=== PATIENT | female | born 1995 | race Caucasian/White ===

== ENCOUNTER → 2017-03-14 | Outpatient (REF) | payer OTHER ==
[2017-03-18 00:08] LABS: W008-IgE DANDELION <0.10 kU/L (Class 0)
== END ==
LOC: M SFHCPLAZ 08:49
PROVIDERS: ATTEND Nurse Practitioner Family
DX: Z02.0 Encounter for examination for admission to educational institution (principal)

== ENCOUNTER → 2017-04-11 | Outpatient (REF) | payer OTHER ==
[2017-04-11 13:37] LABS: BASO % 0.6 % (0.0-1.0); EOS % 1.1 % (0.0-3.0); LARGE UNSTAINED CELL # 0.1 K/mm3 (0.0-0.4); LARGE UNSTAINED CELL % 1.3 % (0.0-4.0); LYMPH # 1.4 K/mm3 (1.5-6.5); LYMPH % 34.6 % (24.0-44.0); MEAN CORPUSCULAR HEMOGLOBIN 30.2 pg (27.0-33.0); MEAN CORPUSCULAR HGB CONC 33.8 g/dl (32.0-36.5); MEAN CORPUSCULAR VOLUME 89.3 fl (80.0-96.0); MONO # 0.2 K/mm3 (0.0-0.8); MONO % 4.8 % (0.0-5.0); NEUTROPHILS # 2.3 K/mm3 (1.8-7.7); NEUTROPHILS % 57.7 % (36.0-66.0); PLATELET COUNT, AUTOMATED 196 k/mm3 (150-450); RED CELL DISTRIBUTION WIDTH 12.9 % (11.5-14.5)
[2017-04-11 14:08] LABS: ERYTHROCYTE SEDIMENTATION RATE 8 mm/hr (0-20)
[2017-04-11 14:26] LABS: ALBUMIN 3.5 GM/DL (3.2-5.2); ALBUMIN/GLOBULIN RATIO 1.13 (1.00-1.93); ALKALINE PHOSPHATASE 33 U/L (45-117); ALT/SGPT 14 U/L (12-78); ANION GAP 11 MEQ/L (8-16); AST/SGOT 9 U/L (15-37); BILIRUBIN,TOTAL 0.3 MG/DL (0.2-1.0); BLOOD UREA NITROGEN 11 MG/DL (7-18); CALCIUM LEVEL 8.7 MG/DL (8.5-10.1); CARBON DIOXIDE LEVEL 19 MEQ/L (21-32); CHLORIDE LEVEL 106 MEQ/L (98-107); CREATININE FOR GFR 0.65 MG/DL (0.55-1.02); GLOMERULAR FILTRATION RATE > 60.0 (>60); GLUCOSE, FASTING 82 MG/DL (70-105); POTASSIUM SERUM 3.8 MEQ/L (3.5-5.1); SODIUM LEVEL 136 MEQ/L (136-145); TOTAL PROTEIN 6.6 GM/DL (6.4-8.2)
[2017-04-12 14:15] LABS: SJOGREN'S ANTI SS-A 0.3 AI (0.0-0.9); SJOGREN'S ANTI SS-B <0.2 AI (0.0-0.9)
== END ==
LOC: M LABNEURO 13:25
PROVIDERS: ATTEND Psychiatry & Neurology Neurology
DX: R51 Headache (principal)

== ENCOUNTER → 2017-09-12 | Outpatient (REF) | payer OTHER ==
[2017-09-12 13:50] LABS: BASO % 0.6 % (0.0-1.0); EOS # 0.1 10^3/uL (0.0-0.50); EOS % 1.2 % (0.0-3.0); IMMATURE GRANULOCYTE % 0.2 % (0-0); LYMPH # 1.8 10^3/uL (1.5-6.5); LYMPH % 27.3 % (24.0-44.0); MEAN CORPUSCULAR HGB CONC 34.2 g/dl (32.0-36.5); MEAN CORPUSCULAR VOLUME 87.6 fl (80.0-96.0); MONO # 0.3 10^3/uL (0.0-0.8); MONO % 5.2 % (0.0-5.0); NEUTROPHILS # 4.3 10^3/uL (1.8-7.7); NEUTROPHILS % 65.5 % (36.0-66.0); PLATELET COUNT, AUTOMATED 220 10^3/uL (150-450); RED CELL DISTRIBUTION WIDTH 12.2 % (11.5-14.5); WHITE BLOOD COUNT 6.6 10^3/uL (4.0-10.0)
[2017-09-12 14:14] LABS: ALBUMIN 3.6 GM/DL (3.2-5.2); ALBUMIN/GLOBULIN RATIO 1.09 (1.00-1.93); ALKALINE PHOSPHATASE 45 U/L (45-117); ALT/SGPT 18 U/L (12-78); ANION GAP 6 MEQ/L (8-16); AST/SGOT 14 U/L (7-37); BILIRUBIN,TOTAL 0.9 MG/DL (0.2-1.0); BLOOD UREA NITROGEN 13 MG/DL (7-18); CALCIUM LEVEL 8.7 MG/DL (8.5-10.1); CARBON DIOXIDE LEVEL 29 MEQ/L (21-32); CHLORIDE LEVEL 106 MEQ/L (98-107); GLOMERULAR FILTRATION RATE > 60.0 (>60); GLUCOSE, FASTING 74 MG/DL (70-105); POTASSIUM SERUM 4.3 MEQ/L (3.5-5.1); SODIUM LEVEL 141 MEQ/L (136-145); TOTAL PROTEIN 6.9 GM/DL (6.4-8.2)
[2017-09-12 14:16] LABS: ERYTHROCYTE SEDIMENTATION RATE 4 mm/hr (0-20)
[2017-09-12 14:23] LABS: ESTIMATED AVERAGE GLUCOSE 88 MG/DL (60-110)
[2017-09-12 16:19] LABS: VITAMIN B12 LEVEL 354 PG/ML (247-911)
[2017-09-12 16:20] LABS: FOLATE 10.3 NG/ML (>5.4)
[2017-09-13 14:18] LABS: SJOGREN'S ANTI SS-A 0.3 AI (0.0-0.9); SJOGREN'S ANTI SS-B <0.2 AI (0.0-0.9)
[2017-09-17 11:04] LABS: ALBUMIN % 58.6 % (55.8-66.1)
[2017-09-17 11:05] LABS: ALBUMIN 4.04 GM/DL (3.29-5.55); GAMMA GLOBULIN % 15.6 % (11.1-18.8)
[2017-09-17 14:19] LABS: VITAMIN E LEVEL 8.5 mg/L (5.3-16.8)
== END ==
LOC: M LABDRAW1 10:03
DX: R41.3 Other amnesia (principal); R51 Headache

== ENCOUNTER → 2017-10-15 | Outpatient (REF) | payer OTHER | LOC: M LAB REF 19:03 | DX: N39.0 Urinary tract infection, site not specified (principal) ==

== ENCOUNTER → 2018-04-25 | Outpatient (REF) | payer OTHER | LOC: M LAB REF 16:12 | DX: J02.9 Acute pharyngitis, unspecified (principal) ==

== ENCOUNTER 2018-10-17 23:45 | Emergency (ER) | payer OTHER ==
[~2018-10-17] VITALS: Ht 154.9 cm; Wt 70.5 kg
[2018-10-17 23:52] VITALS: BP 148/86
[2018-10-18 01:04] LABS: BASO # 0.1 10^3/uL (0.0-0.2); BASO % 0.7 % (0.0-1.0); EOS % 0.6 % (0.0-3.0); HEMATOCRIT 38.1 % (36.0-47.0); HEMOGLOBIN 13.5 g/dl (12.0-15.5); LYMPH # 2.1 10^3/uL (1.5-6.5); LYMPH % 30.2 % (24.0-44.0); MEAN CORPUSCULAR HEMOGLOBIN 29.9 pg (27.0-33.0); MEAN CORPUSCULAR HGB CONC 35.4 g/dl (32.0-36.5); MEAN CORPUSCULAR VOLUME 84.3 fl (80.0-96.0); MONO # 0.4 10^3/uL (0.0-0.8); MONO % 6.1 % (0.0-5.0); NEUTROPHILS # 4.3 10^3/uL (1.8-7.7); NEUTROPHILS % 62.3 % (36.0-66.0); PLATELET COUNT, AUTOMATED 284 10^3/uL (150-450); RED BLOOD COUNT 4.52 10^6/uL (4.00-5.40); WHITE BLOOD COUNT 6.9 10^3/uL (4.0-10.0)
[2018-10-18 01:31] LABS: HCG, SERUM QUALITATIVE NEGATIVE (NEGATIVE)
[2018-10-18 01:39] LABS: ALBUMIN 4.2 GM/DL (3.2-5.2); ALT/SGPT 24 U/L (12-78); BILIRUBIN,TOTAL 0.4 MG/DL (0.2-1.0); BLOOD UREA NITROGEN 12 MG/DL (7-18); CALCIUM LEVEL 8.9 MG/DL (8.5-10.1); CARBON DIOXIDE LEVEL 22 MEQ/L (21-32); CHLORIDE LEVEL 108 MEQ/L (98-107); CREATININE FOR GFR 0.66 MG/DL (0.55-1.30); GLOMERULAR FILTRATION RATE > 60.0 (>60); GLUCOSE, FASTING 99 MG/DL (70-100); POTASSIUM SERUM 3.8 MEQ/L (3.5-5.1); SODIUM LEVEL 141 MEQ/L (136-145); TOTAL PROTEIN 7.5 GM/DL (6.4-8.2)
[2018-10-18 01:41] LABS: HIVEXPOSED0 NEGATIVE (NEGATIVE)
[2018-10-20 11:10] LABS: HEPATITIS B SURFACE ANTIBODY NEGATIVE (POSITIVE)
[2018-10-20 11:20] LABS: HEPATITIS B SURFACE ANTIGEN NEGATIVE (NEGATIVE)
[2018-10-20 11:49] LABS: HEPATITIS C VIRUS ABY INDEX 0.1 INDEX (<0.8)
== END 2018-10-18 00:58 | disposition home or self-care (01) ==
LOC: M ED 23:45
DX: Z77.21 Contact with and (suspected) exposure to potentially hazardous body fluids (principal); S61.235A Puncture wound without foreign body of left ring finger without damage to nail, initial encounter; W46.1XXA Contact with contaminated hypodermic needle, initial encounter; Y92.129 Unspecified place in nursing home as the place of occurrence of the external cause; Y99.0 Civilian activity done for income or pay; Z88.0 Allergy status to penicillin; Z88.2 Allergy status to sulfonamides

== ENCOUNTER → 2019-08-04 | Outpatient (CLI) | payer BC ==
[2019-08-04 13:20] LABS: THYROID STIMULATING HORMONE 1.08 uIU/ML (0.358-3.740); THYROXINE (T4) 9.2 UG/DL (4.5-12.0); TOTAL T3 105.7 NG/DL (60.0-181.0)
[2019-08-06 00:07] LABS: SSA SJOGRENS A <0.2 AI (0.0-0.9); SSB SJOGRENS B <0.2 AI (0.0-0.9)
== END ==
LOC: M LAB 12:10
PROVIDERS: ATTEND Ophthalmology
DX: H16.223 Keratoconjunctivitis sicca, not specified as Sjogren's, bilateral (principal)

== ENCOUNTER 2019-11-24 00:14 | Emergency (ER) | payer BC, OTHER ==
[~2019-11-24] VITALS: Ht 154.9 cm; Wt 72.7 kg
[2019-11-24 00:15] VITALS: BP 158/86
[2019-11-24] MEDS ORDERED: ATEN25TA PO (00:20)
[2019-11-24] MEDS ORDERED: PLAQ200T4 PO (00:20)
[2019-11-24 00:57] LABS: BASO # 0.1 10^3/uL (0.0-0.2); BASO % 0.9 % (0.0-1.0); EOS # 0.1 10^3/uL (0.0-0.5); EOS % 1.3 % (0.0-3.0); HEMATOCRIT 37.7 % (36.0-47.0); HEMOGLOBIN 13.1 g/dl (12.0-15.5); LYMPH # 2.7 10^3/uL (1.5-5.0); LYMPH % 39.2 % (24.0-44.0); MEAN CORPUSCULAR HEMOGLOBIN 29.4 pg (27.0-33.0); MEAN CORPUSCULAR HGB CONC 34.7 g/dl (32.0-36.5); MEAN CORPUSCULAR VOLUME 84.7 fl (80.0-96.0); MONO # 0.4 10^3/uL (0.0-0.8); MONO % 5.6 % (0.0-5.0); NEUTROPHILS # 3.7 10^3/uL (1.5-8.5); NEUTROPHILS % 52.9 % (36.0-66.0); PLATELET COUNT, AUTOMATED 319 10^3/uL (150-450); RED BLOOD COUNT 4.45 10^6/uL (4.00-5.40); WHITE BLOOD COUNT 6.9 10^3/uL (4.0-10.0)
[2019-11-24 01:37] LABS: ALBUMIN 3.6 GM/DL (3.2-5.2); ALT/SGPT 14 U/L (12-78); BILIRUBIN,TOTAL 0.2 MG/DL (0.2-1.0); BLOOD UREA NITROGEN 11 MG/DL (7-18); CALCIUM LEVEL 8.8 MG/DL (8.5-10.1); CARBON DIOXIDE LEVEL 24 MEQ/L (21-32); CHLORIDE LEVEL 108 MEQ/L (98-107); CREATININE FOR GFR 0.77 MG/DL (0.55-1.30); GLOMERULAR FILTRATION RATE > 60.0 (>60); GLUCOSE, FASTING 110 MG/DL (70-100); HCG, SERUM QUALITATIVE NEGATIVE (NEGATIVE); POTASSIUM SERUM 3.9 MEQ/L (3.5-5.1); SODIUM LEVEL 138 MEQ/L (136-145); TOTAL PROTEIN 7.3 GM/DL (6.4-8.2)
[2019-11-25 11:31] LABS: HEPATITIS B SURFACE ANTIBODY POSITIVE (POSITIVE)
[2019-11-25 11:41] LABS: HEPATITIS B SURFACE ANTIGEN NEGATIVE (NEGATIVE)
[2019-11-25 12:10] LABS: HEPATITIS C VIRUS ABY INDEX < 0.0 INDEX (<0.8)
== END 2019-11-24 01:59 | disposition home or self-care (01) ==
LOC: M ED 00:14
DX: Z77.21 Contact with and (suspected) exposure to potentially hazardous body fluids (principal); W46.1XXA Contact with contaminated hypodermic needle, initial encounter; Y92.129 Unspecified place in nursing home as the place of occurrence of the external cause; M06.9 Rheumatoid arthritis, unspecified; M32.9 Systemic lupus erythematosus, unspecified; Z88.0 Allergy status to penicillin; Z88.2 Allergy status to sulfonamides; Z79.899 Other long term (current) drug therapy

== ENCOUNTER → 2021-07-03 | Outpatient (REF) ==
[~2021-07-03] MED LIST: ATEN25TA PO; PLAQ200T4 PO
== END ==
LOC: M EMP 09:29
PROVIDERS: ATTEND Family Medicine
DX: Z20.822 Contact with and (suspected) exposure to COVID-19 (principal)

== ENCOUNTER → 2022-01-22 | Outpatient (REF) | LOC: M EMP 13:03 | PROVIDERS: ATTEND Family Medicine | DX: Z11.52 Encounter for screening for COVID-19 (principal) ==

== ENCOUNTER → 2022-07-19 | Outpatient (CLI) | payer BC ==
[2022-07-19 17:20] LABS: HEMATOCRIT 38.8 % (36.0-47.0); HEMOGLOBIN 13.3 g/dl (12.0-15.5); MEAN CORPUSCULAR HEMOGLOBIN 29.9 pg (27.0-33.0); MEAN CORPUSCULAR HGB CONC 34.3 g/dl (32.0-36.5); MEAN CORPUSCULAR VOLUME 87.2 fl (80.0-96.0); PLATELET COUNT, AUTOMATED 288 10^3/uL (150-450); RED BLOOD COUNT 4.45 10^6/uL (4.00-5.40)
[2022-07-19 19:38] LABS: GC DNA AMPLIFICATION NEGATIVE (NEGATIVE)
[2022-07-19 20:13] LABS: HEPATITIS B SURFACE ANTIGEN NEGATIVE (NEGATIVE); HEPATITIS C VIRUS ABY INDEX 0.1 INDEX (<0.8); HIV 1&2 SCREEN CENTAUR NEGATIVE (NEGATIVE)
== END ==
LOC: M PLALAB 15:24
PROVIDERS: ATTEND Specialist
DX: Z34.81 Encounter for supervision of other normal pregnancy, first trimester (principal); Z3A.00 Weeks of gestation of pregnancy not specified

== ENCOUNTER → 2022-07-19 | Outpatient (REF) | payer BC | LOC: M PLALAB 14:56 | PROVIDERS: ATTEND Specialist | DX: Z34.81 Encounter for supervision of other normal pregnancy, first trimester (principal) ==

== ENCOUNTER → 2022-08-23 | Outpatient (REF) | payer BC | LOC: M PLALAB 09:09 | PROVIDERS: ATTEND Advanced Practice Midwife | DX: Z34.01 Encounter for supervision of normal first pregnancy, first trimester (principal); Z3A.00 Weeks of gestation of pregnancy not specified ==

== ENCOUNTER → 2022-10-26 | Outpatient (CLI) | payer BC | LOC: M RAD 10:48 | PROVIDERS: ATTEND Advanced Practice Midwife | DX: Z34.02 Encounter for supervision of normal first pregnancy, second trimester (principal); Z3A.23 23 weeks gestation of pregnancy ==

== ENCOUNTER → 2022-11-16 | Outpatient (CLI) | payer BC ==
[2022-11-16 14:40] LABS: HEMATOCRIT 34.6 % (36.0-47.0); HEMOGLOBIN 11.7 g/dl (12.0-15.5); MEAN CORPUSCULAR HGB CONC 33.8 g/dl (32.0-36.5); MEAN CORPUSCULAR VOLUME 91.8 fl (80.0-96.0); PLATELET COUNT, AUTOMATED 243 10^3/uL (150-450); RED BLOOD COUNT 3.77 10^6/uL (4.00-5.40); WHITE BLOOD COUNT 9.7 10^3/uL (4.0-10.0)
[2022-11-16 16:16] LABS: GC DNA AMPLIFICATION NEGATIVE (NEGATIVE)
== END ==
LOC: M PLALAB 09:26
PROVIDERS: ATTEND Obstetrics & Gynecology
DX: Z34.92 Encounter for supervision of normal pregnancy, unspecified, second trimester (principal)

== ENCOUNTER → 2023-01-25 | Outpatient (REF) | payer BC | LOC: M PLALAB 09:52 | PROVIDERS: ATTEND Obstetrics & Gynecology | DX: Z34.03 Encounter for supervision of normal first pregnancy, third trimester (principal) ==

== ENCOUNTER 2023-02-24 08:26 | Inpatient (IN) | payer BC ==
[~2023-02-24] VITALS: Ht 154.9 cm; Wt 92.2 kg
[2023-02-24] VITALS (28 sets, daily range): BP systolic 95–177; BP diastolic 44–76
[2023-02-24] MEDS ORDERED: PRENTAB9 PO (08:39)
[2023-02-24] MEDS ORDERED: OMEP-173 PO (08:39)
[2023-02-24] MEDS ORDERED: HOME MED LIST COMPLETE! XX SCH (08:45)
[2023-02-24] MEDS ORDERED: LACTATED RINGER'S 1000 ML IV STA (08:57)
[2023-02-24] MEDS ORDERED: LR 1,000 ML IV SCH (09:00)
[2023-02-24] MEDS ORDERED: OXYTOCIN DRIP 30 UNITS in IV 1 EA IV PRN (09:00)
[2023-02-24] MEDS ORDERED: CARBOPROST TROMETHAMINE 250 MCG/ML AMP IM PRN (09:00)
[2023-02-24] MEDS ORDERED: LIDOCAINE 1% MDV 20ML VIAL INFIL PRN (09:00)
[2023-02-24] MEDS ORDERED: TRANEXAMIC ACID INJection 1,000 MG in NS 100 ML IV PRN (09:00)
[2023-02-24] MEDS ORDERED: METHYLERGONOVINE MALEATE 0.2MG/ML 1ML VIAL IM PRN (09:00)
[2023-02-24] MEDS ORDERED: miSOPROStol 50MCG 1/2 TABLET SL SCH (09:30)
[2023-02-24 09:44] LABS: HEMATOCRIT 31.9 % (36.0-47.0); HEMOGLOBIN 10.7 g/dl (12.0-15.5); MEAN CORPUSCULAR HEMOGLOBIN 28.1 pg (27.0-33.0); MEAN CORPUSCULAR HGB CONC 33.5 g/dl (32.0-36.5); MEAN CORPUSCULAR VOLUME 83.7 fl (80.0-96.0); PLATELET COUNT, AUTOMATED 253 10^3/uL (150-450); RED BLOOD COUNT 3.81 10^6/uL (4.00-5.40); WHITE BLOOD COUNT 9.7 10^3/uL (4.0-10.0)
[2023-02-24] MEDS ORDERED: PROMETHAZINE 25MG/ML 1ML VIAL IV ONE (15:30)
[2023-02-24] MEDS ORDERED: NALBUPHINE HCL 10 MG/ML 1ML AMP IV ONE (15:30)
[2023-02-24] MEDS ORDERED: OXYTOCIN DRIP 30 UNITS in IV 1 EA IV SCH (17:55)
[2023-02-24] MEDS ORDERED: NALOXONE INJ 0.4MG/1ML VIAL IV PRN (19:05)
[2023-02-24] MEDS ORDERED: diphenhydrAMINE 50MG/ML VIAL IV PRN (19:05)
[2023-02-24] MEDS ORDERED: LR 500 ML IV PRN (19:05)
[2023-02-24] MEDS ORDERED: EPIDURAL/PCA KEYS XX PRN (19:05)
[2023-02-24] MEDS ORDERED: FENTANYL/ROPIVACAINE/NACL BAG 100 ML EPIDURAL SCH (19:05)
[2023-02-24] MEDS ORDERED: ONDANSETRON 4MG 2ML VIAL IV PRN (19:05)
[2023-02-24] MEDS ORDERED: ePHEDrine SULFATE 25 MG/5 ML(5MG/ML) SYRINGE IVP PRN (19:05)
[2023-02-25 00:07] VITALS: BP 103/56
[2023-02-25] MEDS ORDERED: METHYLERGONOVINE MALEATE 0.2 MG TAB PO PRN (01:00)
[2023-02-25] MEDS ORDERED: ONDANSETRON 4MG 2ML VIAL IV PRN (01:00)
[2023-02-25] MEDS ORDERED: ACETAMINOPHEN TAB 650MG DOSE (2X325MG) PO PRN (01:00)
[2023-02-25] MEDS ORDERED: DOCUSATE SODIUM 100MG CAPSULE PO PRN (01:00)
[2023-02-25] MEDS ORDERED: LR 1,000 ML IV SCH (01:00)
[2023-02-25] MEDS ORDERED: RHOGAM 300MCG (1500IU) INJ IM SCH (01:00)
[2023-02-25] MEDS ORDERED: ACETAMINOPHEN 500 MG TAB PO PRN (01:00)
[2023-02-25] MEDS ORDERED: IBUPROFEN 600MG TAB PO PRN (01:00)
[2023-02-25] MEDS ORDERED: OXYTOCIN DRIP 30 UNITS in IV 1 EA IV SCH (01:00)
[2023-02-25] MEDS: IBUPROFEN 800 MG TAB PO PRN ×2 (01:21→08:32)
[2023-02-25 01:30] VITALS: BP 113/59; O2SAT 98
[2023-02-25] MEDS: DIBUCAINE 1% OINTMENT 30GM TOP PRN (02:14)
[2023-02-25 06:00] VITALS: BP 117/60; O2SAT 98
[2023-02-25] MEDS: PRENATAL VITAMINS CHEWABLE TABLET PO SCH (08:27)
[2023-02-25] MEDS: HYDROXYCHLOROQUINE 200 MG TAB PO SCH ×2 (14:22→21:30)
[2023-02-25] MEDS: atenoloL 25 MG TAB PO SCH (14:26)
[2023-02-25 17:36] VITALS: BP 117/64
[2023-02-26] MEDS: IBUPROFEN 800 MG TAB PO PRN ×2 (00:47→08:24)
[2023-02-26] MEDS: DIBUCAINE 1% OINTMENT 30GM TOP PRN (00:50)
[2023-02-26 06:00] VITALS: BP 107/58; O2SAT 98
[2023-02-26] MEDS: PRENATAL VITAMINS CHEWABLE TABLET PO SCH (08:23)
[2023-02-26] MEDS: HYDROXYCHLOROQUINE 200 MG TAB PO SCH (08:24)
[2023-02-26 08:25] VITALS: BP 128/69
[2023-02-26] MEDS: atenoloL 25 MG TAB PO SCH (08:25)
[2023-02-26] MEDS ORDERED: COLA100C5 PO (08:56)
[2023-02-26] MEDS ORDERED: IBUP-1022 PO (08:56)
[2023-02-26] MEDS ORDERED: ACET-683 PO (08:56)
[2023-02-27] MEDS ORDERED: MEASLES,MUMPS,RUBELLA VACCINE INJ (MMR-II) SC.IMMUN ONE (09:00)
== END 2023-02-26 14:35 | disposition home or self-care (01) | DRG 560 ==
LOC: M LDO 08:26 → M LDI 08:54 → M OBS 02-25 01:38
PROVIDERS: ADMIT Obstetrics & Gynecology; ATTEND Obstetrics & Gynecology
PROC: 10E0XZZ Delivery of Products of Conception, External Approach (ICD-10-PCS; principal; 2023-02-24)
PROC: 3E0P7VZ Introduction of Hormone into Female Reproductive, Via Natural or Artificial Opening (ICD-10-PCS; 2023-02-24)
PROC: 0HQ9XZZ Repair Perineum Skin, External Approach (ICD-10-PCS; 2023-02-24)
DX: O48.0 Post-term pregnancy (principal); O70.0 First degree perineal laceration during delivery; Z37.0 Single live birth; Z3A.40 40 weeks gestation of pregnancy

== ENCOUNTER → 2023-08-21 | Outpatient (REF) | payer BC ==
[~2023-08-21] MED LIST changes: +ACET-683 PO; +COLA100C5 PO; +IBUP-1022 PO; +OMEP-173 PO; +PRENTAB9 PO
== END ==
LOC: M SFHCWAGY 13:28
PROVIDERS: ATTEND Nurse Practitioner Family
DX: Z12.4 Encounter for screening for malignant neoplasm of cervix (principal)

== ENCOUNTER → 2024-09-21 | Outpatient (CLI) | payer BC ==
[2024-09-21 17:28] LABS: BASO # 0.1 10^3/uL (0.0-0.2); BASO % 0.9 % (0.0-1.0); EOS # 0.1 10^3/uL (0.0-0.5); EOS % 1.1 % (0.0-3.0); HEMATOCRIT 40.6 % (36.0-47.0); HEMOGLOBIN 14.1 g/dl (12.0-15.5); LYMPH # 2.7 10^3/uL (1.5-5.0); LYMPH % 36.9 % (24.0-44.0); MEAN CORPUSCULAR HEMOGLOBIN 29.1 pg (27.0-33.0); MEAN CORPUSCULAR HGB CONC 34.7 g/dl (32.0-36.5); MEAN CORPUSCULAR VOLUME 83.9 fl (80.0-96.0); MONO # 0.6 10^3/uL (0.0-0.8); MONO % 8.6 % (2.0-8.0); NEUTROPHILS # 3.9 10^3/uL (1.5-8.5); NEUTROPHILS % 52.4 % (36.0-66.0); PLATELET COUNT, AUTOMATED 253 10^3/uL (150-450); RED BLOOD COUNT 4.84 10^6/uL (4.00-5.40); WHITE BLOOD COUNT 7.4 10^3/uL (4.0-10.0)
[2024-09-21 17:50] LABS: ERYTHROCYTE SEDIMENTATION RATE 9 mm/hr (0-20)
== END ==
LOC: M LAB 16:49
PROVIDERS: ATTEND Student in an Organized Health Care Education/Training Program
DX: M06.09 Rheumatoid arthritis without rheumatoid factor, multiple sites (principal)

== ENCOUNTER → 2025-04-12 | Outpatient (REF) | payer BC ==
[2025-04-15 15:02] LABS: HPV APTIMA Not Detected (Not Detected)
== END ==
LOC: M SFHCWAGY 10:06
PROVIDERS: ATTEND Advanced Practice Midwife
DX: Z12.4 Encounter for screening for malignant neoplasm of cervix (principal)
CPT/HCPCS: 87624; G0123

== ENCOUNTER → 2025-04-23 | Outpatient (CLI) | payer BC | LOC: M RAD 12:58 | PROVIDERS: ATTEND Nurse Practitioner Primary Care | DX: M25.562 Pain in left knee (principal) ==